=== PATIENT | female | born 1960 | race Native Hawaiian/Other Pacific Islander ===

== ENCOUNTER 2017-02-05 06:47 | Day surgery (SDC) | payer MEDICAID ==
[2017-02-05] MEDS ORDERED: SUBLIMAZE IV PRN (07:12)
[2017-02-05] MEDS ORDERED: ZOFRAN IV PRN (07:12)
[2017-02-05] MEDS ORDERED: DILAUDID IV PRN (07:12)
--- NOTE | 2017-02-05 07:14 | Anesthesia Consultation ---
Anesthesia Consult and Med Hx Date of service: 02/05/17 - Airway Anesthetic Teeth Evaluation: Dentures (upper) ROM Head & Neck: Adequate Mental/Hyoid Distance: Adequate Mallampati Class: Class II Intubation Access Assessment: Probably Good - Pulmonary Exam CTA: Yes (clear blbs) - Cardiac Exam Cardiac Exam: RRR - Pre-Operative Health Status ASA Pre-Surgery Classification: ASA2 Proposed Anesthetic Plan: General - Pulmonary Hx Smoking: No Hx Asthma: No COPD: No Hx Pneumonia: No Hx Sleep Apnea: No (NAPOLEON PRE SCREEN LOW RISK) - Cardiovascular System Hx Hypertension: Yes (hctz last saw md 2 weeks ago no K supplement) - Central Nervous System Hx Back Pain: Yes Hx Psychiatric Problems: No - Gastrointestinal Hx Gastroesophageal Reflux Disease: No - Endocrine Hx Renal Disease: Yes (kidney stone) Hx End Stage Renal Disease: No - Hematic Hx Anemia: Yes ("RESOLVED") - Other Systems Hx Alcohol Use: No Hx Substance Use: No Hx Cancer: No
--- NOTE | 2017-02-05 07:14 | Anesthesia Day of Surgery ---
Anesthesia Day of Surgery - Day of Surgery Patient Examined: Yes Patient H&P Reviewed: Yes Patient is NPO: Yes Beta Blockers: No Cardiac Clearance: No Pulmonary Clearance: No
[2017-02-05] MEDS ORDERED: ANCEF/STERILE WATER 2 GM/20 ML IV NR (08:00)
[2017-02-05] MEDS ORDERED: VERSED IV NR (08:00)
[2017-02-05] MEDS ORDERED: NACL 0.9% 1000 ML 1,000 ML IV SCH (08:00)
[2017-02-05] MEDS ORDERED: PEPCID PO NR (08:00)
[2017-02-05 08:01] LABS: Hematocrit 43.5 % (30.3-42.9)
[2017-02-05] MEDS ORDERED: XYLOCAINE MPF 2% ONE (08:36)
[2017-02-05] MEDS ORDERED: DECADRON ONE (08:36)
[2017-02-05] MEDS ORDERED: DIPRIVAN 10 MG/ML IV ONE (08:36)
[2017-02-05] MEDS ORDERED: DILAUDID ONE (08:36)
[2017-02-05] MEDS ORDERED: ZOFRAN ONE (08:37)
[2017-02-05] MEDS ORDERED: ANCEF/STERILE WATER 2 GM/20 ML 2 GM/20 ML SYRINGE IV NR (09:00)
--- NOTE | 2017-02-05 09:16 | Post Operative Note ---
Pre-op diagnosis: l renal stones Post-op diagnosis: same Findings: as above Procedure: left eswl Anesthesia: NOREEN Surgeon: BC DAVIS Estimated blood loss: none Pathology: none Condition: stable Disposition: PACU
--- NOTE | 2017-02-05 09:17 | Discharge Summary ---
Short Stay Discharge Plan Activity: fall precautions Weight Bearing Status: Full Weight Bearing Diet: low fat, low cholesterol, low salt Special Instructions: other (no straining , inc fluids ) Follow up with: DEE DEE PACHECO MD [Primary Care Provider] - 7 Days BC DAVIS MD [Staff Physician] - 14 Days
--- NOTE | 2017-02-05 09:48 | Post Anesthesia Evaluation ---
- Post Anesthesia Evaluation Patient Participated: Yes Airway Patent: Yes Stable Respiratory Function: Yes Nausea/Vomiting: No Temp > 96.8F: Yes Pain Manageable: Yes Adequeate Hydration: Yes Anesthesia Complications: No Block Receding Appropriately: Not Applicable Patient on Ventilator: No
--- NOTE | 2017-02-05 10:24 | Operative Report ---
PREOPERATIVE DIAGNOSIS: Residual postpercutaneous left renal stone. POSTOPERATIVE DIAGNOSIS: Residual postpercutaneous left renal stone. PROCEDURE: Left in situ lithotripsy. SURGEON: Sid Gonzales MD ANESTHESIA: General. FINDINGS: This is a woman who had had a ____ huge stone in the kidney and most of it was removed. She had some debris in the upper [place] that was not accessible with the ___ tubes. She now presents for lithotripsy. She has some gravel in left lower pole. DESCRIPTION OF PROCEDURE: The patient was brought to lithotripsy and placed on the table. Following induction of anesthesia, stone was easily localized in both the AP and oblique image. Shocks were begun at 1 kV, renal pause was carried out, and maximum shocks of 5 kV. Total 2500 shocks were given. The patient tolerated the procedure well. Family notified, brought to recovery in stable condition. JOB# [id number] MIROSLAVA/ANICETO
[2017-02-05 10:33] VITALS: BP 124/70
== END 2017-02-05 11:11 | disposition home or self-care (01) ==
LOC: OR 06:47
PROVIDERS: ATTEND Urology
DX: N20.0 Calculus of kidney (principal); I10 Essential (primary) hypertension; Z83.3 Family history of diabetes mellitus; Z82.49 Family history of ischemic heart disease and other diseases of the circulatory system; Z82.0 Family history of epilepsy and other diseases of the nervous system
CPT/HCPCS: 36415; 50590; 85014; 85018; J1100; J1170; J2250; J2405; J2704; J7030